=== PATIENT | female | born 1980 | race African-American/Black ===

== ENCOUNTER 2016-11-20 17:19 | Emergency (ER) | payer BC, OTHER ==
[~2016-11-20] VITALS: Ht 154.9 cm; Wt 58.1 kg
[~2016-11-20 17:19] MED LIST: NAPROSYN500 MG PO; ZPAK PO
[2016-11-20 17:47] VITALS: BP 141/91
[2016-11-20] MEDS ORDERED: ULTRAM 50MG TAB50 MG PO (18:03)
[2016-11-20] MEDS ORDERED: NABUMETONE 750750 M1 PO (18:03)
== END 2016-11-20 18:24 | disposition home or self-care (01) ==
LOC: ER 17:19
DX: K02.9 Dental caries, unspecified (principal)

== ENCOUNTER 2020-01-07 15:40 | Emergency (ER) | payer OTHER ==
[~2020-01-07] VITALS: Ht 154.9 cm; Wt 56.7 kg
[~2020-01-07 15:40] MED LIST changes: +NABUMETONE 750750 M1 PO; +ULTRAM 50MG TAB50 MG PO
[2020-01-07 17:06] LABS: ABSOLUTE NEUTROPHILS 6.7 thou/uL (1.4-8.2); BASOPHILS 0.8 % (0.0-2.0); EOSINOPHILS 0.8 % (0.0-3.0); HEMATOCRIT 36.4 % (37.0-47.0); HEMOGLOBIN 12.2 gm/dL (12.0-15.0); LYMPHOCYTES 16.4 % (24.0-44.0); MCH 30.2 pg (26.0-34.0); MCHC 33.5 g/dL (28.0-37.0); MCV 90.2 fL (80.0-100.0); MONOCYTES 6.9 % (1.0-8.0); PLATELET COUNT 348 thou/uL (150-400); POLYS 75.1 % (36.0-66.0); RBC 4.04 mil/uL (4.20-5.00); RDW 13.3 % (10.5-14.5); WBC 8.9 thou/uL (4.0-11.0)
[2020-01-07 17:10] LABS: ANION GAP 9 mmol/L (7-16); BUN 9 mg/dL (7-18); CALCIUM 8.5 mg/dL (8.5-10.1); CHLORIDE 104 mmol/L (98-107); CO2 24 mmol/L (21-32); CREATININE 0.8 mg/dL (0.6-1.0); GLUCOSE 126 mg/dL (74-106); POTASSIUM 3.4 mmol/L (3.5-5.1); SODIUM 137 mmol/L (136-145)
[2020-01-07 17:19] LABS: TROPONIN-I <0.06 ng/mL (<0.06)
[2020-01-07 17:24] LABS: AMP/METHAMP Negative (Negative); BARBITURATES Negative (Negative); BENZODIAZEPINES Negative (Negative); COCAINE Negative (Negative); METHADONE Negative (Negative); OPIATES Negative (Negative); PCP Negative (Negative)
[2020-01-07 18:00] VITALS: BP 132/83
--- NOTE | 2020-01-08 08:29 | EKG ---
[facility] [place] [address] ELECTROCARDIOGRAM REPORT Name: UZMA LESTER Room #: DEP [facility]#: [id number] Admission: 01/07/20 Attend Phys: Discharge: 01/07/20 Date of : 80 Report #: [id number] THIS REPORT FOR: cc: RIANA - [facility] family physician/PCP RIANA - [facility] family physician/PCP Anthony Pradhan MD [facility] THIS REPORT FOR: //name// [facility] ED Test Date: 2020-01-07 Test Time: 16:04:43 Pat Name: UZMA LESTER Department: Room: Gender: Charge Entry Clerk: : 1980 Requested By: Papo Zambrano Order Number: [id number] MD: Anthony Pradhan Measurements Intervals [place] Rate: 92 P: 61 DE: 170 QRS: 4 QRSD: 82 T: 27 QT: 371 QTc: 459 Interpretive Statements Sinus rhythm Normal tracing Compared to ECG 08/23/2015 23:19:54 No significant changes Electronically Signed On 01-08-2020 8:29:14 CDT by Anthony Pradhan [email or web address] <ELECTRONICALLY SIGNED> By: Anthony Pradhan MD, FACC 01/08/20 0829 1604 1604 Anthony Pradhan MD, [facility] /EPI
== END 2020-01-07 18:01 | disposition home or self-care (01) ==
LOC: ER 15:40
PROVIDERS: Emergency Medicine
DX: R00.2 Palpitations (principal); R42 Dizziness and giddiness; R06.02 Shortness of breath; Z79.899 Other long term (current) drug therapy